=== PATIENT | female | born 1995 | race Caucasian/White ===

== ENCOUNTER 2019-07-30 15:03 | Day surgery (SDC) | payer OTHER, SELFPAY ==
[2019-07-30 15:28] VITALS: BMI 24.2
[2019-07-30] MEDS ORDERED: hydrALAZINE 20 MG/ML VIAL SLOW IVP PRN (15:34)
--- NOTE | 2019-07-30 15:37 | PDOC.LDHP ---
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 No VB, no fever, no cough, no LOF. Now feels FM. 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 FM now felt. No evidence active SXS of PTL. - Plan Plan: observation in L&D (reasurrance give. For rash on lower extremity, consider lotrisone cream.)
== END 2019-07-30 16:17 | disposition home health service (06) ==
LOC: L&D/OP 15:03
PROVIDERS: ATTEND Student in an Organized Health Care Education/Training Program
DX: O36.8120 Decreased fetal movements, second trimester, not applicable or unspecified (principal); O99.89 Other specified diseases and conditions complicating pregnancy, childbirth and the puerperium; R21 Rash and other nonspecific skin eruption; O9A.212 Injury, poisoning and certain other consequences of external causes complicating pregnancy, second trimester; S39.011A Strain of muscle, fascia and tendon of abdomen, initial encounter; S39.012A Strain of muscle, fascia and tendon of lower back, initial encounter; Z3A.27 27 weeks gestation of pregnancy; Z79.899 Other long term (current) drug therapy; Z88.1 Allergy status to other antibiotic agents; X58.XXXA Exposure to other specified factors, initial encounter; Y99.0 Civilian activity done for income or pay

== ENCOUNTER 2019-09-11 14:28 | Day surgery (SDC) | payer OTHER ==
[2019-09-11] MEDS ORDERED: hydrALAZINE 20 MG/ML VIAL SLOW IVP PRN (14:41)
[2019-09-11] MEDS ORDERED: Lactated Ringer's 1,000 ML IV SCH (14:45)
[2019-09-11 14:46] VITALS: BMI 26.2
--- NOTE | 2019-09-11 15:06 | PDOC.LDHP ---
Labor and Delivery H&P Chief complaint: decreased movement HPI: 24 y/o G1 at 33w1d, patient of Dr. Gaston, presents with decreased FM today, only feeling 5 movements per hour. She was recently diagnosed with cholestasis and is anxious about that. Has been feeling the baby move more since arrival. Denies VB, LOF, ctx, or other concerns. ROS neg for HEENT, cv, pulm, gi, gu, neuro, psych, skin, musculoskeletal or constitutional symptoms other than mentioned above. OB History Details: First Current complications: other (cholestasis) Past Medical History: anxiety Current medications: pre-romulo vitamins, other (ursodiol) Previous surgical history: none Allergies/Adverse Reactions: Allergies Allergy/AdvReac Type Severity Reaction Status Date / Time cephalexin [From Keflex] Allergy Verified 07/30/19 15:17 Social history: none - Physical Exam Vital signs reviewed and normal: yes General: NAD, resting Lungs: nonlabored breathing Abdomen: gravid Extremeties: no edema FHT: category 1 (130s, mod variability, + accels, no decels) [place] contractions every: intermittent - Assessment 24 y/o G1 at 33w1d with reassuring status, reactive NST. - Plan -: D.c home with precautions. Has appointment with Dr. Gaston on Friday.
== END 2019-09-11 16:30 | disposition home or self-care (01) ==
LOC: L&D/OP 14:28
PROVIDERS: ATTEND Student in an Organized Health Care Education/Training Program
DX: O36.8130 Decreased fetal movements, third trimester, not applicable or unspecified (principal); O26.613 Liver and biliary tract disorders in pregnancy, third trimester; K83.1 Obstruction of bile duct; Z3A.33 33 weeks gestation of pregnancy; Z88.1 Allergy status to other antibiotic agents
CPT/HCPCS: 99281

== ENCOUNTER 2019-10-09 20:09 | Day surgery (SDC) | payer OTHER ==
[2019-10-09 20:33] VITALS: BP 107/69; TEMP 99.4; BMI 27.4
[2019-10-09] MEDS ORDERED: hydrALAZINE 20 MG/ML VIAL SLOW IVP PRN (20:47)
--- NOTE | 2019-10-09 20:50 | PDOC.LDHP ---
Labor and Delivery H&P Chief complaint: other (itching on body and hands/feet) HPI: 24 yo G1 with EDC 10/29/19 at 37 weeks 1 day. Had serum bile acids twice recently with Dr barlow and last one was normal as of yesterday (Per Dr Asif communication with me). Good FM, no LOF, no VB. No fever. Review of Systems: complete ROS performed and all negative Current gestational age (weeks): 37 (1 day) Dating criteria: last menstrual period Grav: 1 Current complications: none Abnormal US findings: No Current medications: pre-romulo vitamins Previous surgical history: none Allergies/Adverse Reactions: Allergies Allergy/AdvReac Type Severity Reaction Status Date / Time cephalexin [From Keflex] Allergy Mild Rash Verified 10/09/19 20:27 Social history: none - Physical Exam Vital signs reviewed and normal: yes (107/69 pulse 80) General: NAD FHT: category 1 [place] contractions every: none - Assessment Recent normal serum bile acids reassurring. G1 at 37 weeks with nonspecific pruritis hands and feet. Reactive NST - Plan Plan: observation in L&D (Dr Asif dicussed POC with me; ok for NST and recheck CMP; draw bile acids althougfh aeware of senfd out status. If CMP normal and NST reactive, ok for outpatient care and follow Friday to see if labs back.)
[2019-10-09 21:32] LABS: ALT (SGPT) 25 U/L (8-55); AST (SGOT) 21 U/L (5-34); Albumin 3.2 g/dL (3.5-5.0); Alkaline Phosphatase 115 U/L (40-110); Anion Gap 12 mmol/L (10-20); BUN (Urea Nitrogen) 6 mg/dL (7.0-18.7); Bilirubin, Total 0.3 mg/dL (0.2-1.2); Calc. Creatinine Clearance 176 mL/min (70-130); Calcium 8.1 mg/dL (7.8-10.44); Carbon Dioxide 21 mmol/L (22-29); Chloride 107 mmol/L (98-107); Estimated GFR-MDRD Greater than 90; Globulin 2.6 g/dL (2.4-3.5); Glucose 87 mg/dL (70-105); Potassium 3.9 mmol/L (3.5-5.1); Protein, Total 5.8 g/dL (6.0-8.3); Sodium 136 mmol/L (136-145)
--- NOTE | 2019-10-09 21:38 | PDOC.EVN ---
Event Note - Event Note Event Note: LFTS are normal
== END 2019-10-09 21:50 | disposition home or self-care (01) ==
LOC: L&D/OP 20:09
PROVIDERS: ATTEND Student in an Organized Health Care Education/Training Program
DX: O26.893 Other specified pregnancy related conditions, third trimester (principal); L29.9 Pruritus, unspecified; Z3A.37 37 weeks gestation of pregnancy; Z79.899 Other long term (current) drug therapy; Z88.1 Allergy status to other antibiotic agents
CPT/HCPCS: 36415; 82239

== ENCOUNTER 2019-10-25 10:37 | Outpatient (CLI) | payer OTHER ==
[2019-10-26 12:10] LABS: SARS-CoV-2 MS2 Positive; SARS-CoV-2 N Gene Negative; SARS-CoV-2 S Gene Negative; SARS-CoV-2 by NAA Not Detected (NotDetected); SARS-CoV-2 orf1ab Negative
== END 2019-10-25 10:38 | disposition home or self-care (01) ==
LOC: LABSCS 10:37
PROVIDERS: ATTEND Student in an Organized Health Care Education/Training Program
DX: Z01.812 Encounter for preprocedural laboratory examination (principal); Z11.59 Encounter for screening for other viral diseases
CPT/HCPCS: 87635; U0003

== ENCOUNTER 2019-10-27 19:45 | Inpatient (IN) | payer OTHER, SELFPAY ==
[~2019-10-27 19:45] MED LIST: Bupivacaine/Epinephrine 0.25% 30 ML VIAL ONE
[2019-10-27 20:25] VITALS: BMI 28.5
[2019-10-27] MEDS ORDERED: Butorphanol Tartrate 1 MG/ML VIAL SLOW IVP PRN (20:49)
[2019-10-27] MEDS ORDERED: Promethazine HCl 25 MG/ML VIAL IM PRN (20:49)
[2019-10-27] MEDS ORDERED: Diphenoxylate HCl/Atropine Tablet PO PRN (20:49)
[2019-10-27] MEDS ORDERED: Misoprostol 200 MCG TAB PR PRN (20:49)
[2019-10-27] MEDS ORDERED: Lidocaine 1% (PF) 30 ML VIAL SC PRN (20:49)
[2019-10-27] MEDS ORDERED: Methylergonovine 0.2 MG/ML VIAL IM PRN (20:49)
[2019-10-27] MEDS ORDERED: Carboprost 250 MCG/ML AMP IM PRN (20:49)
[2019-10-27] MEDS ORDERED: hydrALAZINE 20 MG/ML VIAL SLOW IVP PRN (20:49)
[2019-10-27] MEDS ORDERED: Acetaminophen 500 MG TAB PO PRN (20:49)
[2019-10-27] MEDS ORDERED: HYDROcodone/Acetaminophen 5/325 mg Tablet PO PRN (20:49)
[2019-10-27] MEDS ORDERED: Ibuprofen 800 MG TAB PO PRN (20:49)
[2019-10-27] MEDS ORDERED: NS w/ Oxytocin 10 units 500 ML IV SCH (21:00)
[2019-10-27] MEDS ORDERED: Penicillin G Potassium 5 MILL.UNITS in Sodium Chloride 0.9% 100 ML IVPB SCH (21:00)
[2019-10-27] MEDS: Lactated Ringer's 1,000 ML IV SCH (21:13)
[2019-10-27] MEDS: Misoprostol 100 MCG TAB VAG SCH (21:20)
[2019-10-27 21:36] LABS: Hemoglobin 12.2 g/dL (12.0-16.0); Mean Corpuscular HGB CONC 34.1 g/dL (32.0-36.0); Mean Corpuscular Hemoglobin 31.3 pg (27.0-31.0); Mean Corpuscular Volume 91.6 fL (78.0-98.0); Mean Platelet Volume 8.6 fL (7.4-10.4); Platelet Count 250 thou/uL (130-400); RBC Distribution Width 12.4 % (11.5-14.5); White Blood Cell (WBC) Count 12.2 thou/uL (4.8-10.8)
[2019-10-27 22:14] LABS: Syphilis Antibody Nonreactive (Nonreactive); Syphilis Antibody Index 0.02 S/CO (<1.00 Non-Reactive)
[2019-10-27 23:04] LABS: HBSAg Index 0.12 S/CO (0-0.99); Hep B Surf Ag Non-Reactive S/CO (NonReactive)
[2019-10-28] MEDS: Penicillin G 2.5 MILL.units 2.5 MILL.UNITS in Premix Bag 1 BAG IVPB SCH ×5 (01:14→18:56)
[2019-10-28] MEDS: Misoprostol 100 MCG TAB VAG SCH ×4 (01:30→18:56)
[2019-10-28] MEDS: Ondansetron PF 4 MG/2 ML Vial IVP PRN ×2 (04:36→12:33)
[2019-10-28] MEDS: Lactated Ringer's 1,000 ML IV SCH ×2 (04:38→09:12)
--- NOTE | 2019-10-28 07:59 | PDOC.LDHP ---
Labor and Delivery H&P Chief complaint: scheduled induction HPI: 24yo at 39w6d by LMP here for elective IOL. s/p cytotec x 3 overnight, + painful ctx. Current gestational age (weeks): 39 Due date: 10/29/19 Dating criteria: last menstrual period Grav: 1 Para: 0 OB History Details: hx of HSV Current complications: none Abnormal US findings: No Past Medical History: denies Current medications: pre-romulo vitamins, iron, other (valtrex 500 bid) Previous surgical history: none Allergies/Adverse Reactions: Allergies Allergy/AdvReac Type Severity Reaction Status Date / Time cephalexin [From Keflex] Allergy Mild Rash Verified 10/27/19 20:09 Social history: none - Physical Exam Vital signs reviewed and normal: yes General: NAD Heart: RRR Lungs: CTAB Abdomen: gravid Extremeties: no edema FHT: category 1 [place] contractions every: 3min - Vaginal Exam cm dilated: 2 Effacement: 75% Station: -1 (arom clear) - OB Labs Blood type: B RH: positive Antibody Screen: negative HIV: negative RPR: negative HEPSAg: negative 1 hour GCT: negative GBS: positive Urine drug screen: negative Rubella: immune - Assessment L&D Assessment: elective induction at term - Plan Plan: admit to L&D, cervical ripening, GBS antibiotic prophylaxis, informed consent obtained, anesthesia consult for pain management
[2019-10-28] MEDS ORDERED: Fentanyl 4 mcg/Bup 0.1% Cadd 100 ML ONE (08:07)
[2019-10-28] MEDS ORDERED: EPHEDRINE 25 MG/5 ML SYRINGE SLOW IVP PRN (09:36)
[2019-10-28] MEDS ORDERED: Ondansetron PF 4 MG/2 ML Vial IVP PRN ×2 (09:36→18:52)
[2019-10-28] MEDS ORDERED: Naloxone HCl 0.4 mg/ml Vial IVP PRN ×2 (09:36)
[2019-10-28] MEDS ORDERED: Acetaminophen 325 MG TAB PO PRN (09:36)
[2019-10-28] MEDS ORDERED: Lactated Ringer's 500 ML IV PRN (09:36)
[2019-10-28] MEDS ORDERED: Promethazine HCl 25 MG/ML VIAL IM PRN (09:36)
[2019-10-28] MEDS ORDERED: diphenhydrAMINE 50 MG/ML VIAL IVP PRN (09:36)
[2019-10-28] MEDS ORDERED: Fentanyl 4 mcg/Bupivacaine 0.1% Cassette 100 ML EPIDURAL SCH (09:45)
[2019-10-28] MEDS ORDERED: Communication Order-Pharmacy FS SCH (09:45)
[2019-10-28] MEDS ORDERED: Lidocaine 1% (PF) 30 ML VIAL ONE (14:19)
[2019-10-28] MEDS ORDERED: NS / Oxytocin 40 units/1000ml 1,000 ML ONE (14:19)
[2019-10-28] MEDS ORDERED: Methylergonovine 0.2 MG/ML VIAL ONE (15:27)
[2019-10-28] MEDS: NS / Oxytocin 40 units/1000ml 1,000 ML IV PRN ×2 (15:29→16:52)
[2019-10-28] MEDS ORDERED: Lanolin Ointment 7 GM TUBE TOP PRN (18:52)
[2019-10-28] MEDS ORDERED: Adacel (T-DAP) 0.5 ML SYRINGE IM ONE (18:52)
[2019-10-28] MEDS ORDERED: Bisacodyl 10 MG SUPP PR PRN (18:52)
[2019-10-28] MEDS ORDERED: NS / Oxytocin 40 units/1000ml 1,000 ML IV SCH (18:52)
[2019-10-28] MEDS ORDERED: hydrALAZINE 20 MG/ML VIAL SLOW IVP PRN (18:52)
[2019-10-28] MEDS ORDERED: Benzocaine-Menthol 82.5 ML CAN TOP PRN (18:52)
[2019-10-28] MEDS ORDERED: Milk Of Magnesia 30 ML UDCUP PO PRN (18:52)
[2019-10-28] MEDS ORDERED: Sodium Chloride 0.9% 10 ML ONE (19:01)
[2019-10-28] MEDS: Ibuprofen 800 MG TAB PO SCH (22:18)
[2019-10-28] MEDS: Docusate Calcium (SURFAK) 240 MG CAP PO SCH (22:19)
[2019-10-29] MEDS: Ibuprofen 800 MG TAB PO SCH ×3 (05:02→21:38)
[2019-10-29 06:02] LABS: Hemoglobin 9.1 g/dL (12.0-16.0)
--- NOTE | 2019-10-29 08:18 | PDOC.OPDEL ---
OB Operative/Delivery Note Delivery Dr/Surgeon: Marilin Assist: n/a Pre-Delivery Diagnosis: elective induction Procedure/Post Delivery Dx: spontaneous vaginal delivery Weeks gestation: 39 Anesthesia: epidural - Findings A Sex: female Weight: 7 lb - 1 min: 5 - 5 min: 9 - Additional Findings/Plan Placenta delivered: spontaneous Repaired Obstetrical Laceration: 2nd degree Estimated blood loss: 1025cc Compilations/Other Findings: methergine x 1 given Post delivery plan: routine recovery
--- NOTE | 2019-10-29 08:19 | PDOC.PP ---
Post Progress Note Post Day #: 1 PO intake tolerated: yes Flatus: yes Ambulation: yes Vital Signs (12 hours) Temp Pulse Resp BP Pulse Ox 10/29/19 08:10 97.8 F 82 20 111/70 99 10/29/19 04:10 98.0 F 85 18 104/67 96 10/29/19 00:20 98.0 F 93 18 110/59 L 95 10/28/19 20:45 99.3 F 96 18 109/65 98 Weight Weight 166 lb - Physical Examination General: NAD Respiratory: non-labored breathing Abdominal: no distention, appropriately TTP Extremities: negative homans (B) Skin: no rash Neurological: no gross focal deficits Psychiatric: normal affect Result Diagrams: 10/29/19 05:43 Additional Labs: Post Labs Blood Type B POSITIVE 10/27/19 22:34 Hep Bs Antigen Non-Reactive S/CO (NonReactive) 10/27/19 21:06
[2019-10-29] MEDS: Docusate Calcium (SURFAK) 240 MG CAP PO SCH ×2 (09:31→21:38)
[2019-10-29] MEDS: Prenatal Vitamin 1 TAB PO SCH (09:31)
[2019-10-29] MEDS: Ferrous Sulfate 325 MG TAB PO SCH ×2 (09:31→16:17)
[2019-10-30] MEDS: Ibuprofen 800 MG TAB PO SCH (05:13)
--- NOTE | 2019-10-30 05:22 | PDOC.PP ---
Post Progress Note Post Day #: PPD2 Subjective: Resting, no c/o. PO intake tolerated: yes Ambulation: yes Vital Signs (12 hours) Temp Pulse Resp BP Pulse Ox 10/29/19 19:45 98.5 F 95 18 104/60 99 Weight Weight 75.296 kg - Physical Examination General: NAD Respiratory: non-labored breathing Neurological: no gross focal deficits Psychiatric: normal affect Result Diagrams: 10/29/19 05:43 Additional Labs: Post Labs Blood Type B POSITIVE 10/27/19 22:34 Hep Bs Antigen Non-Reactive S/CO (NonReactive) 10/27/19 21:06 - Assessment/Plan Doing well s/p SCD. DC home with precautions. RTC [address] Gaston.
[2019-10-30 08:38] VITALS: BP 112/64; TEMP 97.9
[2019-10-30] MEDS: Ferrous Sulfate 325 MG TAB PO SCH (09:06)
[2019-10-30] MEDS: Prenatal Vitamin 1 TAB PO SCH (09:06)
[2019-10-30] MEDS: Docusate Calcium (SURFAK) 240 MG CAP PO SCH (09:06)
== END 2019-10-30 11:45 | disposition home or self-care (01) | DRG 806 ==
LOC: L&D 19:55 → 3SE 10-28 18:50
PROVIDERS: ADMIT Student in an Organized Health Care Education/Training Program; ATTEND Student in an Organized Health Care Education/Training Program
PROC: 10907ZC Drainage of Amniotic Fluid, Therapeutic from Products of Conception, Via Natural or Artificial Opening (ICD-10-PCS; 2019-10-27)
PROC: 3E0P7VZ Introduction of Hormone into Female Reproductive, Via Natural or Artificial Opening (ICD-10-PCS; 2019-10-27)
PROC: 10E0XZZ Delivery of Products of Conception, External Approach (ICD-10-PCS; principal; 2019-10-28)
PROC: 0KQM0ZZ Repair Perineum Muscle, Open Approach (ICD-10-PCS; 2019-10-28)
DX: O99.824 Streptococcus B carrier state complicating childbirth (principal); O98.52 Other viral diseases complicating childbirth; Z37.0 Single live birth; Z3A.39 39 weeks gestation of pregnancy; O70.1 Second degree perineal laceration during delivery; B00.9 Herpesviral infection, unspecified; Z79.899 Other long term (current) drug therapy; Z88.1 Allergy status to other antibiotic agents
CPT/HCPCS: 36415; 51702; 85014; 85018; 85027; 86780; 86850; 86900; 86901; 87340; J0595; J2001; J2210; J2405; J2540; J2590; J3490

== ENCOUNTER 2019-12-21 17:48 | Emergency (ER) | payer OTHER ==
[2019-12-21] MEDS ORDERED: Dexamethasone 10 MG/ML VIAL ONE (18:29)
[2019-12-21 18:46] LABS: #Eosinphils 0.1 thou/uL (0.0-0.7); #Lymphocytes 2.1 thou/uL (1.20-3.40); #Monocytes 0.5 thou/uL (0.11-0.59); #Neutrophils 4.6 thou/uL (1.40-6.50); %Basophils 0.6 % (0.0-1.0); %Eosinophils 1.9 % (0.0-10.0); %Lymphocytes 28.3 % (21.0-51.0); %Monocytes 6.3 % (0.0-10.0); %Neutrophils 62.9 % (42.0-75.0); Mean Corpuscular HGB CONC 33.7 g/dL (32.0-36.0); Mean Corpuscular Hemoglobin 31.2 pg (27.0-31.0); Mean Corpuscular Volume 92.5 fL (78.0-98.0); Mean Platelet Volume 8.7 fL (7.4-10.4); Platelet Count 268 thou/uL (130-400); RBC Distribution Width 11.2 % (11.5-14.5); Red Blood Cell (RBC) Count 4.48 mill/uL (4.20-5.40); White Blood Cell (WBC) Count 7.3 thou/uL (4.8-10.8)
[2019-12-21 19:12] LABS: ALT (SGPT) 42 U/L (8-55); AST (SGOT) 25 U/L (5-34); Alkaline Phosphatase 80 U/L (40-110); Anion Gap 12 mmol/L (10-20); BUN (Urea Nitrogen) 8 mg/dL (7.0-18.7); Bilirubin, Direct 0.1 mg/dL (0.1-0.3); Bilirubin, Total 0.3 mg/dL (0.2-1.2); Calc. Creatinine Clearance 0 mL/min (70-130); Calcium 8.7 mg/dL (7.8-10.44); Carbon Dioxide 25 mmol/L (22-29); Chloride 106 mmol/L (98-107); Estimated GFR-MDRD Greater than 90; Glucose 94 mg/dL (70-105); Potassium 3.9 mmol/L (3.5-5.1); Protein, Total 6.5 g/dL (6.0-8.3); Sodium 139 mmol/L (136-145)
== END 2019-12-21 19:27 | disposition home or self-care (01) ==
LOC: ERS 17:48
DX: L29.9 Pruritus, unspecified (principal); F41.9 Anxiety disorder, unspecified; F32.9 Major depressive disorder, single episode, unspecified; F17.210 Nicotine dependence, cigarettes, uncomplicated; Z79.899 Other long term (current) drug therapy
CPT/HCPCS: 36415; 80048; 80076; 85025; 99283; J1100